=== PATIENT | female | born 1955 | race Caucasian/White ===

== ENCOUNTER 2016-08-25 19:32 | Emergency (ER) | payer BC ==
[2016-08-25] MEDS ORDERED: Amoxicillin/Clavulanate TAB* 875 MG PO ONE (21:28)
--- NOTE | 2016-08-25 21:28 | ED ---
Bite Injury/Animal - HPI Summary HPI Summary: 61F presents with cat bite to left wrist. She was sitting on her chair outside and a cat jumped on her lap. she meant to push it off and it bite her. She is allergic to tetanus. she cleaned the area. The bite happened an hour ago. She denies any signs of infection or fever. - History of Current Complaint Chief Complaint: EDAnimalBite Stated Complaint: CAT BITE Time Seen by Provider: 08/25/16 20:08 Pain Intensity: 0 - Allergies/Home Medications Allergies/Adverse Reactions: Allergies Allergy/AdvReac Type Severity Reaction Status Date / Time ENVIRONMENTAL/SEASONAL Allergy CONGESTION, Uncoded 08/28/13 08:31 HAYFEVER LARYNGITIS PMH/Surg Hx/FS Hx/Imm Hx Endocrine/Hematology History: Reports: Hx Anemia - HX A CHILD Cardiovascular History: Reports: Hx Hypertension - ON MEDS, Hx Rheumatic Fever - AGE 4, Other Cardiovascular Problems/Disorders - CHOLESTEROL CONTROL WITH MEDICATION GI History: Reports: Hx Gastroesophageal Reflux Disease - OCCASIONAL, Hx Irritable Bowel - NO BOUT IN CLOSE TO A YEAR Musculoskeletal History: Reports: Hx Arthritis - OSTEOARTHRITIS Sensory History: Reports: Hx Contacts or Glasses - GLASSES Denies: Hx Hearing Aid Opthamlomology History: Reports: Hx Contacts or Glasses - GLASSES Neurological History: Denies: Other Neuro Impairments/Disorders - Cancer History Hx Chemotherapy: No Hx Radiation Therapy: No - Surgical History Surgery Procedure, Year, and Place: 1978 BUNIONECTOMY X 2, OFFICE. 1983 [place], [facility] [place] 05/1993 RIGHT KNEE ARTHROSCOPY, [facility] [place]. 05/2002 CERVICAL FUSION C6, C7, [facility] [place]. 02/2010 RIGHT SHOULDER ARTHROSCOPY AND ROTATOR CUFF REPAIR, [facility] [place]. 2011 SEBACEOUS CYST REMOVED FROM MIDDLE OF SHOULDER BLADES, OFFICE Hx Anesthesia Reactions: No Infectious Disease History: No Infectious Disease History: Denies: Traveled Outside the [place] in Last 30 Days - Family History Known Family History: Positive: Cardiac Disease - Social History Alcohol Use: Occasionally Substance Use Type: Reports: None Review of Systems Negative: Fever Negative: Chest Pain Negative: Shortness Of Breath Positive: Other - cat bite All Other Systems Reviewed And Are Negative: Yes Physical Exam Triage Information Reviewed: Yes Vital Signs On Initial Exam: Initial Vitals Temp Pulse Resp BP Pulse Ox 98.1 F 87 14 139/83 95 08/25/16 19:44 08/25/16 19:44 08/25/16 19:44 08/25/16 19:44 08/25/16 19:44 Vital Signs Reviewed: Yes Appearance: Positive: Well-Appearing Skin: Positive: Warm, Dry, Other - cat bite to left wrist Head/Face: Positive: Normal Head/Face Inspection Eyes: Positive: Normal, Conjunctiva Clear Respiratory/Lung Sounds: Positive: Clear to Auscultation, Breath Sounds Present Cardiovascular: Positive: Normal, RRR Diagnostics - Vital Signs Vital Signs Temp Pulse Resp BP Pulse Ox 08/25/16 19:44 98.1 F 87 14 139/83 95 - Laboratory Lab Statement: Any lab studies that have been ordered have been reviewed, and results considered in the medical decision making process. Bite Injury Course/Dx - Course Course Of Treatment: 61F presents with cat bite to left wrist. She was sitting on her chair outside and a cat jumped on her lap. she meant to push it off and it bite her. She is allergic to tetanus. she cleaned the area. The bite happened an hour ago. She denies any signs of infection or fever. called health department will try to catch cat so no rabies at this point. cleaned wound out and prescribed augmentin. warned if any signs of infection to return. patient understands and agrees with plan - Diagnoses Differential Diagnosis/HQI/PQRI: Positive: Puncture, Rabies Exposure, Superficial Infection Provider Diagnosis: Cat bite Discharge - Discharge Plan Condition: Good Disposition: HOME Prescriptions: Amoxicillin/Clavulanate TAB* [Augmentin TAB 875*] 875 mg PO BID #9 tab Patient Education Materials: Animal Bite (ED) Referrals: Linda Harrington MD [Primary Care Provider] - Additional Instructions: Take antibiotic twice a day for 5 days Keep area clean, apply neosporin Return to ED if develop any signs of infection or any new or worsening symptoms
[2016-08-25 21:43] VITALS: BP 144/68
== END 2016-08-25 21:44 | disposition home or self-care (01) ==
LOC: ED 19:32
DX: S61.532A Puncture wound without foreign body of left wrist, initial encounter (principal); W55.01XA Bitten by cat, initial encounter; Y93.9 Activity, unspecified; Y92.9 Unspecified place or not applicable; I10 Essential (primary) hypertension; E78.00 Pure hypercholesterolemia, unspecified; K21.9 Gastro-esophageal reflux disease without esophagitis
CPT/HCPCS: 99281; A9270-GY

== ENCOUNTER 2017-01-21 06:01 | Day surgery (SDC) | payer BC ==
[~2017-01-21 06:01] MED LIST: Buffered Lidocaine 0.9% SYRIN* 5 ML/SYR SYRINGE INTRADERM ONE; Dexamethasone IV* 4 MG/ML 1 ML (4 MG) IV SLOW PU ONE; Famotidine IV* 10 MG/ML 2 ML (20 mg) IV ONE
[2017-01-21] MEDS ORDERED: ceFAZolin 2 GM PREMIX (*) 2 GM/50 ML BAG IVPB ONE (06:11)
[2017-01-21] MEDS ORDERED: Dexamethasone IV* 4 MG/ML 1 ML (4 MG) ONE (06:11)
[2017-01-21] MEDS ORDERED: Buffered Lidocaine 0.9% SYRIN* 5 ML/SYR SYRINGE ONE (06:11)
[2017-01-21] MEDS ORDERED: Famotidine IV* 10 MG/ML 2 ML (20 mg) ONE (06:11)
[2017-01-21] MEDS ORDERED: Bupivacaine 0.25% SDV* 30 ML ONE (06:56)
[2017-01-21] MEDS ORDERED: fentaNYL* 50 MCG/ML 5 ML VIAL (250 MCG VIAL) ONE (07:17)
[2017-01-21] MEDS ORDERED: Midazolam* 1 MG/ML 5 ML VIAL (5 MG) ONE (07:17)
[2017-01-21] MEDS ORDERED: Lidocaine 2% PF * 5 ML VIAL ONE (07:18)
[2017-01-21] MEDS ORDERED: Ketorolac INJ* 30 MG/ML 1 ML VIAL ONE (07:18)
[2017-01-21] MEDS ORDERED: Ondansetron INJ* 2 MG/ML VIAL ONE (07:18)
[2017-01-21] MEDS ORDERED: Propofol* 10 MG/ML 20 ML BTL IV PUSH ONE (07:18)
[2017-01-21] MEDS ORDERED: HYDROmorphone INJ* 1 MG/ML CARPUJECT SYRINGE IV PRN (07:29)
[2017-01-21] MEDS ORDERED: fentaNYL* 50 MCG/ML 2 ML VIAL (100 MCG VIAL) IV PRN (07:29)
[2017-01-21] MEDS ORDERED: DiMENhydriNATE IV* 50 MG/ML VIAL IV PUSH PRN (07:29)
[2017-01-21] MEDS ORDERED: Ondansetron INJ* 2 MG/ML VIAL IV PRN (07:29)
[2017-01-21] MEDS ORDERED: Atracurium* 10 MG/ML 10 ML VIAL ONE (07:34)
[2017-01-21] MEDS ORDERED: fentaNYL* 50 MCG/ML 2 ML VIAL (100 MCG VIAL) ONE ×2 (08:39→09:52)
[2017-01-21] MEDS ORDERED: HYDROcodone/ACETAMIN 5-325 MG* 1 TAB ONE (09:48)
[2017-01-21 11:39] VITALS: BP 118/82
--- NOTE | 2017-01-22 07:29 | OP ---
DATE OF OPERATION: 01/21/17 [facility] DATE OF : 59 SURGEON: Sami Watkins MD. AGRICULTURAL EQUIPMENT MECHANIC: JONI Stoddard. An acute care certified nursing assistant was needed for the entirety of the procedure to aid in positioning of the arm and retraction. ANESTHESIOLOGIST: Dr. Junior Elizabeth. ANESTHESIA: General. PRE-OP DIAGNOSES: 1. Stage 3 right thumb carpometacarpal degenerative joint disease. 2. Right carpal tunnel syndrome. POST-OP DIAGNOSES: 1. Stage 3 right thumb carpometacarpal degenerative joint disease. 2. Right carpal tunnel syndrome. OPERATIVE PROCEDURE: 1. Right thumb carpometacarpal arthroplasty with trapeziectomy and distally based split flexor carpi radialis tendon transfer for thumb suspension. 2. Right carpal tunnel release. INDICATIONS: Demi has had progressive disease. She has failed nonoperative treatment. I talked to her about risks and benefits, she wanted to proceed. ESTIMATED BLOOD LOSS: 2 mL. COMPLICATIONS: None. FINDINGS: As expected. DESCRIPTION OF PROCEDURE: Demi was seen in the preoperative holding area. The correct side, site, and procedure were identified. We came back to the operating room. The arm was prepped and draped in the usual fashion. A time- out was performed. The arm was exsanguinated with the Esmarch and the tourniquet inflated to 250 mmHg. I went ahead and made a 2 to 3 cm incision in the standard location for an open carpal tunnel release. Dissection was carried down to the subcutaneous tissue and palmar fascia. Transverse carpal ligament was released just off the radial aspect of the hook of the hamate. The release was completed distally. Proximally, the fascia and subcutaneous tissue was released and retracted volarly and ulnarly. Under direct visualization, I used tenotomy scissors to release the remainder of the transverse carpal ligament. I checked the decompression, everything looked good, so we went ahead and irrigated out the wound. Skin was closed with 3-0 Monocryl suture. I then made a 2 to 3 cm longitudinal incision from the dorsum of the metacarpal base down towards the radial styloid. I came just dorsal to the first dorsal compartment tendons and carried the dissection down longitudinally, taking care to preserve the radial artery and radial sensory nerves. Capsular and subperiosteal flaps were then raised. The carpo-metacarpal joint was identified. The soft tissue around the trapezium was released with a Bates blade. This was then excised with the rongeur. Once the trapezium was completely excised, I went ahead and created a bone tunnel using sequentially larger drill bits, starting on the dorsoradial aspect of the metacarpal base and exiting out the volar ulnar aspect of the articular surface. I went ahead and checked my scaphotrapezoid joint by pulling longitudinal traction on the second ray and with some inspection of the joint everything looked good, so I did not think any partial trapezoidectomy was necessary. We irrigated out this wound and I turned my attention to the forearm. I went ahead and made a 1 cm transverse incision just proximal to the wrist flexion crease. The FCR tendon sheath was opened and the FCR tendon was delivered up into the wound. It was split and a 26-gauge stainless steel wire was passed through the tendon split. I then came proximally and made two 1 to 2 cm transverse incisions at intervals proximally. The FCR tendon sheath was release along the course of the tendon. A 26-gauge wire was passed with a tonsil from the distal wound sequentially into the two more proximal wounds until the FCR tendon split was released in the musculotendinous junction. The free tendon end was delivered into the distal wound and then the muscular portion was released off of the proximal tendon. The tendon was then tubularized and secured with 3-0 Ethibond suture. Two 26-gauge wires were used to shuttle the tendon and down into the thumb base wound. The tendon split was completed all the way down to the base of the second metacarpal. The wire was then used to pass the tendon through the drill hole in the metacarpal base and then it was weaved back around the intact limb of the FCR tendon. Appropriate tension was set and then 3-0 Ethibond suture was used to secure all three limbs of the tendon transfer together via a [id number] suture. I then placed two more [id number] sutures, sewing intact limb to intact limb. The tendon transfer was very nice. The thumb was very nicely suspended. The rest of the tendon was rolled up into tendinous ball and secured with 3-0 Ethibond suture. This was docked as an interposition between the base of the metacarpal and the distal pole of the scaphoid. The capsule was closed with 3- 0 Ethibond suture. Skin was closed with 3-0 Monocryl suture. All the operative areas were infiltrated with 0.25% plain Marcaine. The wounds were dressed with Xeroform, 4x4's, sterile Webril, and then a thumb spica splint was applied, holding the thumb in the abducted position. Tourniquet was deflated. The hand pinked up immediately. She was taken to recovery room in stable condition. [id number]/[facility] #: [id number] MTDD
== END 2017-01-21 11:37 | disposition home or self-care (01) ==
LOC: OR 06:01
PROVIDERS: ATTEND Orthopaedic Surgery Hand Surgery
DX: M18.11 Unilateral primary osteoarthritis of first carpometacarpal joint, right hand (principal); G56.01 Carpal tunnel syndrome, right upper limb; I10 Essential (primary) hypertension; E78.5 Hyperlipidemia, unspecified; Z87.891 Personal history of nicotine dependence
CPT/HCPCS: 88304; 88311; J0690; J1100; J1885; J2250; J2405; J2704; J3010